=== PATIENT | female | born 1980 | race Hispanic/Latino ===

== ENCOUNTER 2018-12-05 11:14 | Emergency (ER) | payer SELFPAY ==
--- NOTE | 2018-12-05 11:36 | Emergency Department Report ---
Blank Doc - Documentation Documentation: This is a 38-year-old female that presents with URI symptoms. Also c/o of a r adri in her face. Denies any other complaints. Patient stated is on clindamycin now for MRSA. This initial assessment diagnostic orders/clinical plan/treatment(s) is/are subject to change based on patient's health status, clinical progression and re- assessment by fellow clinical providers in the ED. Further treatment and workup at subsequent clinical providers discretion. Patient/guardians urged not to elope from ED s their condition may be serious if not clinically assessed and managed. Initial orders include: 1-Patient sent to [facility] for further evaluation and treatment 2-CXR 3- Tylenol
[2018-12-05] MEDS ORDERED: TYLENOL PO ONE (11:38)
--- NOTE | 2018-12-05 12:05 | XRay Report ---
ROUTINE CHEST, TWO VIEWS: HISTORY: Cough. Compared to 12/27/09. The lungs remain mildly hyperinflated. No evidence for infiltrate, large pleural effusion or pneumothorax. There is mild bronchial wall thickening in the hilar regions which could be related to bronchiolitis. The bony structures are grossly intact. IMPRESSION: Consider bronchiolitis or reactive airway disease.
[2018-12-05] MEDS ORDERED: DECADRON IV ONE (12:37)
[2018-12-05] MEDS ORDERED: DECADRON IM ONE (12:38)
--- NOTE | 2018-12-05 12:42 | Emergency Department Report ---
HPI - General Chief Complaint: Upper Respiratory Infection Time Seen by Provider: 12/05/18 11:20 - HPI HPI: Patient is a 38-year-old female who presents to ED complaining of productive cough and skin irritation. Patient states productive cough some gone on for a while now. Patient states skin irritation this is the second time she is given an inferior patient states she is taken clindamycin and this did not really work. ED Past Medical Hx - Past Medical History Hx COPD: Yes Additional medical history: MRSA,pneumonia - Surgical History Additional Surgical History: bilateral pneumo - Social History Smoking Status: Current Every Day Smoker Substance Use Type: None - Medications Home Medications: Home Medications Medication Instructions Recorded Confirmed Last Taken Type Acetaminophen [Tylenol Extra 1,000 mg PO QID PRN #30 tablet 11/28/18 Unknown Rx Strength] Benzocaine/Menth/Cetylpyrd 1 hour PO Q2H PRN #3 packet 11/28/18 Unknown Rx [Cepacol X Strength] Clindamycin [Clindamycin CAP] 300 mg PO Q6H 10 Days #40 capsule 11/28/18 Unknown Rx Azithromycin [Zithromax TAB] 500 mg PO QDAY #7 tablet 12/05/18 Unknown Rx Benzonatate [Tessalon Perles] 100 mg PO Q8HR #30 capsule 12/05/18 Unknown Rx Chlorhexidine Mouthwash [Peridex] 15 ml MM BID #1 bottle 12/05/18 Unknown Rx Clindamycin Phos/Benzoyl Perox 1 applic TP BID #1 gel..gram. 12/05/18 Unknown Rx [Clindamycin-Benzoyl Perox 1-5%] Cyclobenzaprine [Flexeril] 10 mg PO QHS PRN #20 tablet 12/05/18 Unknown Rx Dexamethasone [Decadron] 4 mg PO BID 2 Days #4 tablet 12/05/18 Unknown Rx Ibuprofen [Motrin] 800 mg PO Q8HR #30 tablet 12/05/18 Unknown Rx ED Review of Systems ROS: Stated complaint: BODY PAIN/SOB Other details as noted in HPI Comment: All other systems reviewed and negative Physical Exam - Physical Exam Vital Signs: Vital Signs 12/05/18 11:36 Temperature 100.8 F H Pulse Rate 128 H Respiratory 18 Rate Blood Pressure 118/83 O2 Sat by Pulse 94 Oximetry Physical Exam: GENERAL: Alert and oriented x3, no apparent distress, Normal Gait, atraumatic. HEAD: Head is normocephalic and a-traumatic. MOUTH:Mouth is well hydrated and without lesions. Tonsils nonerythematous or swollen, Uvula midline, Tongue not elevated. Mucous membranes are moist. Posterior pharynx clear, no exudate or lesions. Patent airways. LUNGS: Symetrical with respiration, No wheezing, no rales or crackles, CTAB. HEART: S1, S2 present, regular rate and rhythm without murmur, no rubs, no gallops. Non tender to palpation ABDOMEN: No organomegaly was noted,Positive bowel sounds, soft, and non- distended. . Nontender to palpation on all Quadrants, NO CVA tenderness. SKIN: Warm and dry, erythematous, generalized, nontender rash on face, No ulceration or induration present. ED Course Vital Signs 12/05/18 11:36 Temperature 100.8 F H Pulse Rate 128 H Respiratory 18 Rate Blood Pressure 118/83 O2 Sat by Pulse 94 Oximetry ED Medical Decision Making - Lab Data Result diagrams: 12/05/18 12:51 12/05/18 14:26 - Radiology Data Radiology results: report reviewed, image reviewed Fluoro Time In Minutes: ROUTINE CHEST, TWO VIEWS: HISTORY: Cough. Compared to 12/27/09. The lungs remain mildly hyperinflated. No evidence for infiltrate, large pleural effusion or pneumothorax. There is mild bronchial wall thickening in the hilar regions which could be related to bronchiolitis. The bony structures are grossly intact. IMPRESSION: Consider bronchiolitis or reactive airway disease. Transcribed By: TTR Dictated By: WALKER EDMONDSON JR, MD Electronically Authenticated By: WALKER EDMONDSON JR, MD Signed Date/Time: 12/05/18 1201 - Medical Decision Making 38-year-old female presented upper respiratory infection/bronchitis Patient did have a skin infection. Antibiotics given. Vital signs are normal. Patient is in no acute distress Chest x-ray shows, she reported above Critical care attestation.: If time is entered above; I have spent that time in minutes in the direct care of this critically ill patient, excluding procedure time. ED Disposition Clinical Impression: Upper respiratory infection, Skin infection, bacterial Disposition: DC-01 TO HOME OR SELFCARE Is pt being admited?: No Does the pt Need Aspirin: No Condition: Stable Instructions: Benzoyl Peroxide (On the skin), Upper Respiratory Infection (ED) Additional Instructions: Make sure to follow up with the primary care physician as discussed. You have been given a nurse care manager referral please follow-up. She did take all your steroids first before taking any Motrin do not think these 2 drugs together. Take all your medications as you've been prescribed. If you have any worsening symptoms or develop new symptoms please return to ED immediately. Prescriptions: Cyclobenzaprine [Flexeril] 10 mg PO QHS PRN #20 tablet PRN Reason: Muscle Spasm Azithromycin [Zithromax TAB] 500 mg PO QDAY #7 tablet Benzonatate [Tessalon Perles] 100 mg PO Q8HR #30 capsule Chlorhexidine Mouthwash [Peridex] 15 ml MM BID #1 bottle Clindamycin Phos/Benzoyl Perox [Clindamycin-Benzoyl Perox 1-5%] 1 applic TP BID #1 gel..gram. Dexamethasone [Decadron] 4 mg PO BID 2 Days #4 tablet Ibuprofen [Motrin] 800 mg PO Q8HR #30 tablet Referrals: ALEXANDRIA LEVINCORINTH MD LILLY [Primary Care Provider] - 3-5 Days SHASHI MATHIS MD [Staff Physician] - 3-5 Days Forms: Accompanied Note, Work/School Release Form(ED) Time of Disposition: 16:35
[2018-12-05] MEDS ORDERED: DELTASONE PO ONE (12:43)
[2018-12-05] MEDS ORDERED: ROBITUSSIN PO ONE (12:43)
[2018-12-05 13:08] LABS: Basophils # (Auto) 0.1 K/mm3 (0.0-0.1); Basophils % (Auto) 0.4 % (0.0-1.8); Eosinophils # (Auto) 0.2 K/mm3 (0.0-0.4); Hematocrit 36.7 % (30.3-42.9); Hemoglobin 12.6 gm/dl (10.1-14.3); Lymphocytes # (Auto) 3.8 K/mm3 (1.2-5.4); Lymphocytes % (Auto) 19.4 % (13.4-35.0); Mean Corpuscular HGB Conc 34 % (30-34); Mean Corpuscular Volume 92 fl (79-97); Monocytes # (Auto) 1.8 K/mm3 (0.0-0.8); Monocytes % (Auto) 9.3 % (0.0-7.3); Platelet Count 425 K/mm3 (140-440); Red Cell Distribution Width 13.7 % (13.2-15.2)
[2018-12-05] MEDS ORDERED: NACL 0.9% 1000 ML IV ONE (14:17)
[2018-12-05 15:01] LABS: BUN/Creatinine Ratio 10; Blood Urea Nitrogen 7 mg/dL (7-17); Calcium 9.1 mg/dL (8.4-10.2)
[2018-12-05 15:02] LABS: Hemolysis Index 0
[2018-12-05 16:07] VITALS: BP 137/77
== END 2018-12-05 17:04 | disposition home or self-care (01) ==
LOC: ED 11:14
DX: J06.9 Acute upper respiratory infection, unspecified (principal); J44.9 Chronic obstructive pulmonary disease, unspecified; F17.200 Nicotine dependence, unspecified, uncomplicated; Z88.5 Allergy status to narcotic agent; Z88.0 Allergy status to penicillin; Z88.1 Allergy status to other antibiotic agents
CPT/HCPCS: 36415; 71046; 80048; 82140; 85025; 86140; 99284; J7030; J7512

== ENCOUNTER 2019-01-01 12:57 | Emergency (ER) | payer OTHER ==
--- NOTE | 2019-01-01 13:04 | Emergency Department Report ---
Chief Complaint: Extremity Injury, Lower Stated Complaint: RT FOOT PAIN Time Seen by Provider: 01/01/19 13:03 - HPI History of Present Illness: r foot pain sp fall vss no life threat mse completed MSE screening note: Focused history and physical exam performed. Due to findings the following was ordered: ED Disposition for MSE Clinical Impression: Contusion of foot, right, Drug-seeking behavior Disposition: - TO HOME OR SELFCARE Condition: Stable Instructions: Foot Contusion (ED) Prescriptions: Acetaminophen [8Hr Muscle Aches-Pain] 650 mg PO TID PRN #30 tablet.er PRN Reason: Pain , Severe (7-10) Referrals: PRIMARY CARE, [Referring] - 3-5 Days
[2019-01-01] MEDS ORDERED: ZOFRAN ODT PO ONE (13:55)
[2019-01-01] MEDS ORDERED: ULTRAM PO ONE (13:55)
--- NOTE | 2019-01-01 14:50 | XRay Report ---
PROCEDURE: XR FOOT 3+V RT TECHNIQUE: 3 views of the right foot HISTORY: rt foot pain COMPARISONS: None. FINDINGS: There is no acute fracture or dislocation. There is foreshortening of the fifth metatarsal bone, whic h may be developmental versus posttraumatic in nature. The joint spaces are preserved. The overlying soft tissues are intact. There is no radiopaque foreign body. IMPRESSION: No acute bony abnormality of the right foot. This document is electronically signed by Catina Reyes MD., January 01 2019 02:47:40 PM ET
[2019-01-01] MEDS ORDERED: TYLENOL ONE (14:55)
--- NOTE | 2019-01-01 15:00 | Emergency Department Report ---
ED Lower Extremity HPI - General Chief Complaint: Extremity Injury, Lower Stated Complaint: RT FOOT PAIN Time Seen by Provider: 01/01/19 13:03 Source: patient Mode of arrival: Ambulatory Limitations: No Limitations - History of Present Illness Initial Comments: Patient is 38 years old female 38 years old female with no significant past medical history. Patient presented to the ER complaining of right foot pain. Patient stated that she was walking 2 days ago when she felt a pop in her right foot. Patient denied any other injuries. MD Complaint: foot injury - Related Data Previous Rx's Medication Instructions Recorded Last Taken Type Acetaminophen [Tylenol Extra 1,000 mg PO QID PRN #30 tablet 11/28/18 Unknown Rx Strength] Benzocaine/Menth/Cetylpyrd 1 hour PO Q2H PRN #3 packet 11/28/18 Unknown Rx [Cepacol X Strength] Clindamycin [Clindamycin CAP] 300 mg PO Q6H 10 Days #40 capsule 11/28/18 Unknown Rx Azithromycin [Zithromax TAB] 500 mg PO QDAY #7 tablet 12/05/18 Unknown Rx Benzonatate [Tessalon Perles] 100 mg PO Q8HR #30 capsule 12/05/18 Unknown Rx Chlorhexidine Mouthwash [Peridex] 15 ml MM BID #1 bottle 12/05/18 Unknown Rx Clindamycin Phos/Benzoyl Perox 1 applic TP BID #1 gel..gram. 12/05/18 Unknown Rx [Clindamycin-Benzoyl Perox 1-5%] Cyclobenzaprine [Flexeril] 10 mg PO QHS PRN #20 tablet 12/05/18 Unknown Rx Dexamethasone [Decadron] 4 mg PO BID 2 Days #4 tablet 12/05/18 Unknown Rx Ibuprofen [Motrin] 800 mg PO Q8HR #30 tablet 12/05/18 Unknown Rx Acetaminophen [8Hr Muscle 650 mg PO TID PRN #30 tablet.er 01/01/19 Unknown Rx Aches-Pain] Allergies Allergy/AdvReac Type Severity Reaction Status Date / Time codeine Allergy Unknown Verified 12/05/18 11:39 ketorolac [From Toradol] Allergy Shortness Verified 11/28/18 00:20 of Breath levofloxacin [From Levaquin] Allergy Rash Verified 11/28/18 00:21 morphine Allergy Itching Verified 01/01/19 13:04 Penicillins Allergy Shortness Verified 11/28/18 00:20 of Breath ED Review of Systems ROS: Stated complaint: RT FOOT PAIN Other details as noted in HPI Comment: All other systems reviewed and negative Constitutional: denies: chills, fever Respiratory: denies: cough Cardiovascular: denies: chest pain, palpitations Gastrointestinal: denies: abdominal pain ED Past Medical Hx - Past Medical History Previous Medical History?: Yes Hx COPD: Yes Additional medical history: MRSA,pneumonia - Surgical History Past Surgical History?: Yes Additional Surgical History: bilateral pneumo - Social History Smoking Status: Current Every Day Smoker Substance Use Type: Alcohol, Prescribed - Medications Home Medications: Home Medications Medication Instructions Recorded Confirmed Last Taken Type Acetaminophen [Tylenol Extra 1,000 mg PO QID PRN #30 tablet 11/28/18 Unknown Rx Strength] Benzocaine/Menth/Cetylpyrd 1 hour PO Q2H PRN #3 packet 11/28/18 Unknown Rx [Cepacol X Strength] Clindamycin [Clindamycin CAP] 300 mg PO Q6H 10 Days #40 capsule 11/28/18 Unknown Rx Azithromycin [Zithromax TAB] 500 mg PO QDAY #7 tablet 12/05/18 Unknown Rx Benzonatate [Tessalon Perles] 100 mg PO Q8HR #30 capsule 12/05/18 Unknown Rx Chlorhexidine Mouthwash [Peridex] 15 ml MM BID #1 bottle 12/05/18 Unknown Rx Clindamycin Phos/Benzoyl Perox 1 applic TP BID #1 gel..gram. 12/05/18 Unknown Rx [Clindamycin-Benzoyl Perox 1-5%] Cyclobenzaprine [Flexeril] 10 mg PO QHS PRN #20 tablet 12/05/18 Unknown Rx Dexamethasone [Decadron] 4 mg PO BID 2 Days #4 tablet 12/05/18 Unknown Rx Ibuprofen [Motrin] 800 mg PO Q8HR #30 tablet 12/05/18 Unknown Rx Acetaminophen [8Hr Muscle 650 mg PO TID PRN #30 tablet.er 01/01/19 Unknown Rx Aches-Pain] ED Physical Exam - General Limitations: No Limitations General appearance: alert, in no apparent distress - Head Head exam: Present: atraumatic, normocephalic - Eye Eye exam: Present: normal appearance - ENT ENT exam: Present: normal exam, normal orophraynx - Neck Neck exam: Present: normal inspection. Absent: tenderness, meningismus - Respiratory Respiratory exam: Present: normal lung sounds bilaterally - Cardiovascular Cardiovascular Exam: Present: regular rate, normal rhythm, normal heart sounds - GI/Abdominal GI/Abdominal exam: Present: soft. Absent: distended, tenderness, guarding, rebound - Extremities Exam Extremities exam: Present: normal inspection - Expanded Lower Extremity Exam Right Foot/Toe exam: Present: normal inspection, full ROM, tenderness. Absent: swelling, abrasion, laceration, ecchymosis, deformity, crepidus Neuro vascular tendon exam: Present: no vascular compromise - Back Exam Back exam: Present: normal inspection ED Course Vital Signs 01/01/19 01/01/19 01/01/19 13:04 14:05 15:17 Temperature 99.4 F 98.8 F Pulse Rate 98 H 18 L Respiratory 18 18 18 Rate Blood Pressure 123/76 Blood Pressure 136/54 [Right] O2 Sat by Pulse 96 Oximetry ED Lower Extremity MDM - Radiology Data Radiology results: report reviewed Referring Physician: MELODIE NASSAR Patient Name: LYDIA AMADOR Date of : 1980 Sex: Female Report Date: 2019-01-01 Report Status: [place] [address] XRay Report Signed Patient: LYDIA AMADOR MR#: [id number] : 1980 Acct:[id number] Age/Sex: 38 / F ADM Date: 01/01/19 Loc: ED Attending Dr: Ordering Physician: MELODIE NASSAR Date of Service: 01/01/19 Procedure(s): XR foot 3+V RT Accession Number(s): [id number] cc: MELODIE NASSAR Fluoro Time In Minutes: PROCEDURE: XR FOOT 3+V RT TECHNIQUE: 3 views of the right foot HISTORY: rt foot pain COMPARISONS: None. FINDINGS: There is no acute fracture or dislocation. There is foreshortening of the fifth metatarsal bone, which may be developmental versus posttraumatic in nature. The joint spaces are preserved. The overlying soft tissues are intact. There is no radiopaque foreign body. IMPRESSION: No acute bony abnormality of the right foot. This document is electronically signed by Catina Espinoza MD., January 01 2019 02:47:40 PM ET Transcribed By: SALVATORE Dictated By: CATINA ESPINOZA MD Electronically Authenticated By: CATINA ESPINOZA MD Signed Date/Time: 01/01/19 1450 DD/ 133 TD/TT: 01/01/19 1331 - Medical Decision Making Patient is 38 years old female 38 years old female with no significant past medical history. Patient presented to the ER complaining of right foot pain. Patient stated that she was walking 2 days ago when she felt a pop in her right foot. Patient denied any other injuries. Patient kept asking about specific narcotics. Patient x-ray is negative for acute finding. There is an obvious narcotic seeking behavior. Patient initially get tramadol before the x-ray results. I advised patient to follow-up with her primary care physician for pain management. Critical care attestation.: If time is entered above; I have spent that time in minutes in the direct care of this critically ill patient, excluding procedure time. ED Disposition Clinical Impression: Contusion of foot, right, Drug-seeking behavior Disposition: DC-01 TO HOME OR SELFCARE Is pt being admited?: No Condition: Stable Instructions: Foot Contusion (ED) Prescriptions: Acetaminophen [8Hr Muscle Aches-Pain] 650 mg PO TID PRN #30 tablet.er PRN Reason: Pain , Severe (7-10) Referrals: PRIMARY CARE, [Primary Care Provider] - 3-5 Days
[2019-01-01 15:18] VITALS: BP 136/54
== END 2019-01-01 15:17 | disposition home or self-care (01) ==
LOC: ED 12:57
DX: S90.31XA Contusion of right foot, initial encounter (principal); J44.9 Chronic obstructive pulmonary disease, unspecified; F17.200 Nicotine dependence, unspecified, uncomplicated; Z88.5 Allergy status to narcotic agent; Z88.0 Allergy status to penicillin; W22.8XXA Striking against or struck by other objects, initial encounter; Y93.89 Activity, other specified; Y92.89 Other specified places as the place of occurrence of the external cause; Y99.8 Other external cause status
CPT/HCPCS: 99283; Q0162